=== PATIENT | male | born 1995 | race Caucasian/White ===

== ENCOUNTER → 2016-12-31 | Outpatient (CLI) | payer OTHER | LOC: BMCIMAGING 11:10 | PROVIDERS: ATTEND Emergency Medicine | DX: S62.647A Nondisplaced fracture of proximal phalanx of left little finger, initial encounter for closed fracture (principal) ==

== ENCOUNTER → 2017-01-29 | Outpatient (CLI) | payer OTHER | LOC: BMCIMAGING 11:24 | PROVIDERS: ATTEND Physician Assistant | DX: S62.647D Nondisplaced fracture of proximal phalanx of left little finger, subsequent encounter for fracture with routine healing (principal) ==

== ENCOUNTER → 2017-04-19 | Outpatient (CLI) | payer OTHER | LOC: BMCIMAGING 11:42 | PROVIDERS: ATTEND Family Medicine | DX: S82.301A Unspecified fracture of lower end of right tibia, initial encounter for closed fracture (principal); V00.898A Other accident on other pedestrian conveyance, initial encounter; Y93.39 Activity, other involving climbing, rappelling and jumping off ==